=== PATIENT | male | born 2000 | race Caucasian/White ===

== ENCOUNTER 2024-02-06 10:19 | Emergency (ER) | payer BC, SELFPAY ==
[2024-02-06 10:32] VITALS: BP 165/98
[2024-02-06] MEDS: AUGMENTIN 875 MG/125 MG 1 TABLET PO (11:12)
[2024-02-06] MEDS: LET TOPICAL ANESTHETIC GEL 3 ML TOPICAL (12:03)
--- NOTE | 2024-02-06 14:30 | ED.SKININJ ---
HPI-Injury
General
Chief Complaint: Bite
Source: patient
Exam Limitations: none
Time Seen by Provider: 02/06/24 10:41
Nursing documentation reviewed up to this point in time: agreed with
History of Present Illness-Injury
Is this injury a work related problem?: No
Is pt an associate of [facility]?: No
Initial Injury comments:
23-year-old male without significant past medical history presenting to the emergency department with concerns of a laceration to his left lower lip that occurred when his dog bit his lip when he was waking his dog up this morning otherwise the
dog's been acting normally and is up-to-date with vaccinations. He claims his last tetanus shot was 2 years ago. Denies any additional concerns no numbness or weakness no additional injuries..
Review of Systems
Review of Systems
Allergies reviewed?: Yes
All Other Systems: ROS reviewed and negative except as documented in HPI and ROS
Phy Exam
Physical Exam
Physical Exam:
GENERAL: Alert , in no apparent distress
EYE: pupils equal and reactive
NECK: Supple, no significant adenopathy.
ENT: Patient's left lower lip with a 1 cm laceration crossing the vermilion border. No obvious muscle involvement cleaned thoroughly and no foreign body seen. o/p clr, mmm.
CARDIAC: Regular rate and rhythm .
LUNGS: Clear breath sounds bilaterally, no acute respiratory distress, no wheezes/rales/rhonchi
ABDOMEN: Soft, without focal tenderness, no r/g, no cvat
NEUROLOGICAL: Alert and oriented, no focal neuro deficits
SKIN: Warm and dry, skin intact.
MUSCULOSKELETAL: No edema, well perfused.
PSYCH: Normal and appropriate interaction.
Course
Orders/Labs/Results
Orders:
Orders
02/06/24 11:03
Amoxicillin 875 mg/Clav 125 mg [Augmentin 875 mg/125 mg] 1 tablet PO NOW STA
02/06/24 11:58
Lidocaine/Epinephrine/Tetracai [Let Topical Anesthetic Gel] 3 ml TOPICAL NOW STA
02/06/24 12:01
Lidocaine/Epinephrine/Tetracai [Let Topical Anesthetic Gel] 3 ml .ROUTE .STK-MED ONE
Vital Signs
Initial and Last Documented VS:
Initial Vital Signs
Temp Pulse Resp BP Pulse Ox
97.6 F 77 18 165/98 100
02/06/24 10:32 02/06/24 10:32 02/06/24 10:32 02/06/24 10:32 02/06/24 10:32
Last Documented Vital Signs
Temp Pulse Resp BP Pulse Ox
97.6 F 77 16 165/98 100
02/06/24 10:32 02/06/24 10:32 02/06/24 12:00 02/06/24 10:32 02/06/24 10:32
MDM/Problems Addressed
MDM/Problems Addressed:
23-year-old male presenting to the emergency department today with concerns of a laceration to his left lower lip caused by his dog biting him just prior to arrival. The dog is up-to-date with rabies vaccination thus he does not need any
prophylaxis here. Otherwise he is up-to-date with his tetanus shot he was given Augmentin and for prescription of this. He was requesting a plastic surgeon for closure of this. The plastic surgeon was contacted and can see him today in the office
he was sent directly to the office for repair.
*Critical Care Note
Total Time (30-74mins, 75-104mins- exclusive of procedures): Not Applicable
ED Attending Note
-
Portions of this chart may have been created with voice recognition software.� Occasional wrong word or��sound alike� substitutions may have occurred due to the inherent limitations of voice recognition software.
Discharge Plan
Departure
Patient Disposition: Home (Routine Discharge)
Date of Disposition: 02/06/24
Time of Disposition: 14:31
Patient with high blood pressure during this ER visit?: No
Condition: Good
Covid-19: Not Applicable
Discharge Problem:
Laceration of lip
Instructions: Animal Bites (DC)
Prescriptions:
New
amoxicillin-pot clavulanate 875-125 mg tablet
1 tab PO BID 5 Days Qty: 10 0RF
Referrals:
Terence Montenegro MD [Active] - None
Roni Olmedo DO [Family Provider] -
Activity Restrictions/Additional Instructions:
You came to the emergency department with concerns of a dog bite to your left lower lip. Please go immediately to the plastic surgery office at [address] [place] [address] [address] This is on the second floor in [address]. Please take Augmentin
twice daily to reduce risk of infection. Return for any worsening, new or concerning symptoms.
Interventions
Interventions:
*Risk Screen - Suicide Last Done: 02/06/24 10:32
*General Assessment Last Done: 02/06/24 10:32
*Neglect/Abuse Screening Last Done: 02/06/24 10:32
ED- Fall Risk Assessment Last Done: 02/06/24 11:15
ED-Skin Assessment Last Done: 02/06/24 11:15
Discharge Date and Time
Print Language: MONGOLIAN
== END 2024-02-06 14:52 | disposition home or self-care (01) ==
LOC: EMR 10:19
PROVIDERS: EMERGENCY PHYSICIAN Emergency Medicine; FAMILY PHYSICIAN Internal Medicine
DX: S01.551A Open bite of lip, initial encounter (principal); W54.0XXA Bitten by dog, initial encounter
CPT/HCPCS: 99282